=== PATIENT | female | born 1980 | race Caucasian/White ===

== ENCOUNTER → 2018-10-12 | Outpatient (CLI) | payer BC ==
[2018-10-12 17:08] LABS: Basophils # (A) 0.1 k/uL (0-0.2); Basophils % (A) 1 %; Eosinophils # (A) 0.4 k/uL (0-0.7); Eosinophils % (A) 5 %; HCT 36.8 % (34.0-46.0); HGB 11.7 gm/dL (11.4-16.0); Lymphocytes # (A) 2.3 k/uL (1.0-4.8); Lymphocytes % (A) 29 %; MCH 29.1 pg (25.0-35.0); MCHC 31.8 g/dL (31.0-37.0); MCV 91.6 fL (80.0-100.0); Mean Platelet Volume 7.5; Monocytes # (A) 0.3 k/uL (0-1.0); Monocytes % (A) 4 %; Neutrophils # (A) 4.7 k/uL (1.3-7.7); Neutrophils % (A) 60 %; Platelet Count 276 k/uL (150-450); RBC 4.01 m/uL (3.80-5.40); RDW 13.3 % (11.5-15.5); WBC 7.9 k/uL (3.8-10.6)
== END | disposition home or self-care (01) ==
LOC: LABPAT 16:13
PROVIDERS: ATTEND Obstetrics & Gynecology
DX: Z01.812 Encounter for preprocedural laboratory examination (principal); N97.9 Female infertility, unspecified
CPT/HCPCS: 36415; 85025

== ENCOUNTER 2018-10-17 09:47 | Day surgery (SDC) | payer BC ==
[~2018-10-17 09:47] MED LIST: DEXAMETHASONE SOD PHOSPHATE 10 MG/ML 1 ML VIAL IV ONE; HYDROmorphone 0.5 MG/0.5 ML SYRINGE IVP PRN; LACTATED RINGERS 1,000 ML IV SCH; MORPHINE SULFATE 4 MG/ML SYRINGE IV PRN; ONDANSETRON 4 MG/2 ML VIAL IVP ONE; Pre Op ABX Message 1 EACH MISC MISCELLANE ONE
[2018-10-17] MEDS ORDERED: LIDOCAINE 1% 20 ML VIAL (10MG/ML) FOR IV START INTRADERMA ONE (10:46)
[2018-10-17] MEDS ORDERED: ROPIVACAINE 5MG/ML 20ML VIAL MISCELLANE ONE ×2 (10:59→11:37)
[2018-10-17] MEDS ORDERED: SUCCINYLCHOLINE CHLORIDE 100 MG/5 ML SYR IV ONE (11:00)
[2018-10-17] MEDS ORDERED: PROPOFOL 10 MG/ML 20 ML VIAL IV ONE (11:00)
[2018-10-17] MEDS ORDERED: fentaNYL (PF) 50 MCG/ML 2 ML AMP ONE (11:00)
[2018-10-17] MEDS ORDERED: NEOSTIGMINE 1 MG/ML 10 ML VIAL ONE (11:00)
[2018-10-17] MEDS ORDERED: MIDAZOLAM 2 MG/2 ML VIAL ONE (11:00)
[2018-10-17] MEDS ORDERED: ROCURONIUM BROMIDE 10 MG/ML 10 ML VIAL IV ONE (11:00)
[2018-10-17] MEDS ORDERED: GLYCOPYRROLATE 0.2 MG/ML 2 ML VIAL ONE (11:00)
--- NOTE | 2018-10-17 11:39 | P.OP ---
Date of Procedure: 10/17/18 Preoperative Diagnosis: Undesired fertility Postoperative Diagnosis: Same Procedure(s) Performed: Laparoscopic bilateral tubal occlusion with Filshie clips Anesthesia: LEANDRA Surgeon: Chika Farah Estimated Blood Loss (ml): 2 IV fluids (ml): 400 Urine output (ml): 50 Pathology: none sent Condition: stable Disposition: PACU Indications for Procedure: Undesired fertility Operative Findings: Normal-appearing pelvis and upper abdomen. Appendix grossly normal. Bilateral ovaries and fallopian tubes appeared normal. There is approximately 2 cm clear right paratubal cyst noted. Uterus appears normal. Description of Procedure: After the patient was met in the preoperative holding area and all questions were answered, she was taken to the operating room where anesthetic was administered without incident. She was in positioned, prepped and draped in the dorsal low lithotomy position. The bladder was drained for approximately 50 mL of clear urine. Speculum was placed in the vagina and the acorn uterine manipulator was placed without difficulty. Gloves were changed and attention was turned to the abdomen. A 5 mm infraumbilical skin incision was made. The anterior abdominal wall was elevated and the varies needle was inserted. Saline drip test indicated intraperitoneal placement. Initial filling pressure was 4 mm. The abdomen was then insufflated to a total filling pressure of 15 mm of CO2 gas. The Veress needle was removed and the 5 mm diagnostic scope was introduced using the optical blade less trocar. Intraperitoneal placement was confirmed. The patient was then placed in Trendelenburg. Under direct visualization a 8 mm suprapubic port was then placed using a blade less trocar. Instruments were introduced and the bowel was swept out of the pelvis. The above findings were noted. The Filshie clip rv repair technician was then introduced. The right fallopian tube was positively identified and carried out to the fimbriated end visually. The Filshie clip was then placed in the mid isthmic portion completely transecting the right tube. Similarly the left fallopian tube was positively identified and visually carried out to the fimbriated end. The Filshie clip rv repair technician was then utilized placing another clip across the left fallopian tubes completely transecting the tube. The port was then removed. The abdomen was desufflated of CO2 gas and the infraumbilical port was then removed. Skin incisions were closed subcuticularly with 4-0 Vicryl suture. Instruments removed from the vagina. The patient was awoken from anesthetic without incident and transported recovery area in stable condition. All counts reported to me as correct by the operating room staff
[2018-10-17 12:01] VITALS: TEMP 97.5
[2018-10-17] MEDS ORDERED: LACTATED RINGERS 1,000 ML IV ONE (12:25)
[2018-10-17 12:33] VITALS: RESP 16
[2018-10-17] MEDS ORDERED: IBUPROFEN 200 MG TAB PO ONE (12:46)
[2018-10-17 13:06] VITALS: BP 87/53; PULSE 77
== END 2018-10-17 13:43 | disposition home or self-care (01) ==
LOC: OR 09:47
PROVIDERS: ATTEND Obstetrics & Gynecology
DX: Z30.2 Encounter for sterilization (principal); N83.8 Other noninflammatory disorders of ovary, fallopian tube and broad ligament
CPT/HCPCS: 81025; 58671; J2250; J1100; J2710; J2405; J3010; J0330; J2704; J1170; J2795